=== PATIENT | female | born 1985 | race Caucasian/White ===

== ENCOUNTER → 2024-07-29 12:52 | Outpatient (REF) | payer BC, SELFPAY | LOC: HWRAD 12:52 | PROVIDERS: ATTENDING PHYSICIAN Obstetrics & Gynecology Gynecology; FAMILY PHYSICIAN Internal Medicine Geriatric Medicine | DX: N83.209 Unspecified ovarian cyst, unspecified side (principal) | CPT/HCPCS: 76830; 76856 ==